=== PATIENT | male | born 1950 | race Caucasian/White ===

== ENCOUNTER 2020-06-28 22:54 | Emergency (ER) | payer MEDICARE, OTHER ==
[~2020-06-28] VITALS: Ht 177.8 cm; Wt 120.2 kg
[2020-06-28] MEDS ORDERED: GLUCOPHAGE1000 MG PO (23:47)
[2020-06-28] MEDS ORDERED: LISINOPRIL10 MG PO (23:48)
--- NOTE | 2020-06-30 11:27 | EKG ---
[facility] [address] [facility] [place] [address] Signed Normal sinus rhythm Inferior infarct , age undetermined Anterolateral infarct , age undetermined Abnormal ECG No previous ECGs available Confirmed by DINORAH LOPEZ MD ([id number]) on 06/30/2020 11:27:12 AM Electronically Signed By: DINORAH LOPEZ MD 06/30/20 1127 PATIENT NAME: SASHA POPE Electrocardiogram DATE OF : 50 PHYSICIAN: DINORAH LOPEZ MD REPORT #: [id number] REPORT IS CONFIDENTIAL AND NOT TO BE RELEASED WITHOUT AUTHORIZATION
== END 2020-06-29 02:29 | disposition home or self-care (01) ==
LOC: ED 22:54
DX: K52.9 Noninfective gastroenteritis and colitis, unspecified (principal); I10 Essential (primary) hypertension; E11.9 Type 2 diabetes mellitus without complications; Z87.891 Personal history of nicotine dependence; Z79.899 Other long term (current) drug therapy; Z79.84 Long term (current) use of oral hypoglycemic drugs
CPT/HCPCS: 74177; 80053; 81001; 83690; 85025; 93005; 93010; 96361; 99284-25; J2405; J7030; Q9967